=== PATIENT | male | born 1945 | race Caucasian/White ===

== ENCOUNTER → 2018-04-30 | Outpatient (REF) ==
[~2018-04-30] MED LIST: ALPR1TAB3 PO; AMLO5TAB6 PO; AMOX500C PO; ASPI1TAB PO; ASPI325T PO; ATEN50TA2 PO; ATOR80TA59 PO; ATRO0.063 IN; BENZ200C70 PO; CALC25TA PO; CHIL81CH2 PO; CIPR-249 PO; DEBR6.5S4 OTIC; FLOM0.4C39 PO; FLON1SPR; IPRA0.00 INH; LEVE750T5 PO; LOVE0.6I2 SC; LOVE1INJ SC; MAGN400T2 PO; METO1TAB32 PO; METO25TA4 PO; MIRA3350 PO; OXYB10TA PO; PARO20TA3 PO; PEG1POW PO; PHILCAP3 PO; PLAV1TAB2 PO; PRED20TA PO; PROTPAK PO; RANI1SYP PO; ROPI0.5T PO; ROPI3TAB3 PO; SENO8.6T5 PO; SLEE1TAB PO; SPIR1CAP INH; TYLE325T5 PO; VIST25CA PO; VITA1CAP2 PO; VITA1CHW8 PO; VITA500S3 PO; VITA500T3 PO; VITATAB11 PO; WARF-23 PO; [UNRECOGNIZED DRUG - OTHER]
--- NOTE | 2018-04-30 16:46 | REP ---
Chest two views HISTORY: Preop Comparison: 10/02/2015 The lungs are clear. The heart is normal in size. The pulmonary vasculature is normal in appearance. The bony structure is intact. IMPRESSION: No acute disease. Electronically Signed by Jerry Overton MD 04/30/2018 04:38 P
[2018-04-30 17:00] LABS: HEMATOCRIT 46.7 % (42.0-52.0); HEMOGLOBIN 15.5 g/dl (13.5-17.5); MEAN CORPUSCULAR HEMOGLOBIN 32.2 pg (27.0-33.0); MEAN CORPUSCULAR HGB CONC 33.2 g/dl (32.0-36.5); MEAN CORPUSCULAR VOLUME 97.1 fl (80.0-96.0); PLATELET COUNT, AUTOMATED 193 10^3/uL (150-450); RED BLOOD COUNT 4.81 10^6/uL (4.30-6.10); WHITE BLOOD COUNT 8.1 10^3/uL (4.0-10.0)
[2018-04-30 17:10] LABS: APPEARANCE, URINE CLEAR (CLEAR); BACTERIA, URINE AUTO 1+ (NEGATIVE); BILIRUBIN, URINE AUTO NEGATIVE (NEGATIVE); BLOOD, URINE BLOOD NEGATIVE (NEGATIVE); COLOR, URINE YELLOW (YELLOW); GLUCOSE, URINE (UA) AUTO NEGATIVE (NEGATIVE); KETONE, URINE AUTO NEGATIVE (NEGATIVE); LEUKOCYTE ESTERASE, URINE AUTO NEGATIVE (NEGATIVE); MUCUS, URINE SMALL (NEGATIVE); NITRITE, URINE AUTO NEGATIVE (NEGATIVE); PROTEIN, URINE AUTO NEGATIVE (NEGATIVE); RBC, URINE AUTO 3 /HPF (0-3); SPECIFIC GRAVITY URINE AUTO 1.018 (1.002-1.035); SQUAMOUS EPITHELIAL CELL UR AU 1 /HPF (0-6); WBC, URINE AUTO 1 /HPF (0-3)
[2018-04-30 17:16] LABS: INR 1.54; PROTHROMBIN TIME 18.8 SECONDS (12.1-14.4)
[2018-04-30 17:17] LABS: PARTIAL THROMBOPLASTIN TIME 30.6 SECONDS (25.4-37.6)
[2018-04-30 17:21] LABS: BLOOD UREA NITROGEN 18 MG/DL (7-18); CALCIUM LEVEL 8.7 MG/DL (8.8-10.2); CARBON DIOXIDE LEVEL 28 MEQ/L (21-32); CHLORIDE LEVEL 104 MEQ/L (98-107); CREATININE FOR GFR 1.04 MG/DL (0.70-1.30); GLOMERULAR FILTRATION RATE > 60.0 (>42); GLUCOSE, FASTING 97 MG/DL (70-100); POTASSIUM SERUM 4.3 MEQ/L (3.5-5.1); SODIUM LEVEL 140 MEQ/L (136-145)
== END ==
LOC: M LAB 15:33
PROVIDERS: ATTEND Urology
DX: D49.4 Neoplasm of unspecified behavior of bladder (principal)

== ENCOUNTER → 2018-04-30 | Outpatient (CLI) | payer MEDICARE, OTHER | LOC: M LAB 15:33 | PROVIDERS: ATTEND Urology | DX: D49.4 Neoplasm of unspecified behavior of bladder (principal); Z79.01 Long term (current) use of anticoagulants; Z79.899 Other long term (current) drug therapy ==

== ENCOUNTER → 2018-05-04 | Outpatient (REF) | payer OTHER ==
[~2018-05-04] MED LIST changes: -AMOX500C PO; -DEBR6.5S4 OTIC; -METO25TA4 PO; -PRED20TA PO; -ROPI3TAB3 PO
== END ==
LOC: M LABSMT 08:14
PROVIDERS: ATTEND Urology
DX: Z01.818 Encounter for other preprocedural examination (principal); D49.4 Neoplasm of unspecified behavior of bladder; N39.0 Urinary tract infection, site not specified

== ENCOUNTER → 2018-05-07 | Outpatient (REF) | payer OTHER ==
[2018-05-07 19:23] LABS: APPEARANCE, URINE CLEAR (CLEAR); BACTERIA, URINE AUTO NEGATIVE (NEGATIVE); BILIRUBIN, URINE AUTO NEGATIVE (NEGATIVE); BLOOD, URINE BLOOD NEGATIVE (NEGATIVE); COLOR, URINE YELLOW (YELLOW); GLUCOSE, URINE (UA) AUTO NEGATIVE (NEGATIVE); KETONE, URINE AUTO NEGATIVE (NEGATIVE); LEUKOCYTE ESTERASE, URINE AUTO NEGATIVE (NEGATIVE); MUCUS, URINE SMALL (NEGATIVE); NITRITE, URINE AUTO NEGATIVE (NEGATIVE); PROTEIN, URINE AUTO NEGATIVE (NEGATIVE); RBC, URINE AUTO 3 /HPF (0-3); SPECIFIC GRAVITY URINE AUTO 1.021 (1.002-1.035); SQUAMOUS EPITHELIAL CELL UR AU 0 /HPF (0-6); WBC, URINE AUTO 1 /HPF (0-3)
== END ==
LOC: M SMT 17:14
PROVIDERS: ATTEND Urology
DX: Z01.818 Encounter for other preprocedural examination (principal); D49.4 Neoplasm of unspecified behavior of bladder; N39.0 Urinary tract infection, site not specified

== ENCOUNTER → 2018-05-10 | Day surgery (SDC) | payer MEDICARE, OTHER ==
[~2018-05-10] VITALS: Ht 162.6 cm; Wt 92.3 kg
[~2018-05-10] MED LIST changes: +ACETAMINOPHEN TAB 650MG DOSE (2X325MG) PO PRN; +LIDOCAINE 2% INJ 100 MG/5 ML SDV (FOR ANES.) As Ordered ONE; +LR 1,000 ML IV SCH; +MEPERIDINE INJ 25 MG/ML VIAL (J2175) IV PRN; +METOCLOPRAMIDE INJ 10MG/2ML VIAL (J2765) IV PRN; +MIDAZOLAM INJ 2 MG/2 ML VIAL (J2250) As Ordered ONE; +ONDANSETRON 4MG/2ML VIAL (J2405) As Ordered ONE; +ONDANSETRON 4MG/2ML VIAL (J2405) IV PRN; +PERCOCET 5MG/325MG TAB PO PRN; +PROPOFOL 200 MG/20 ML VIAL As Ordered ONE; +ROCURONIUM BROMIDE 50 MG/5 ML VIAL As Ordered ONE; +dexameTHASONE 4 MG/ML 1ML VIAL (J1100) As Ordered ONE; +fentaNYL 100 MCG/2 ML INJECTION (J3010) As Ordered ONE; +fentaNYL 100 MCG/2 ML INJECTION (J3010) IV PRN
[2018-05-10 13:23] LABS: PROTHROMBIN TIME 13.3 SECONDS (12.1-14.4)
[2018-05-10 17:42] VITALS: BP 172/89
--- NOTE | 2018-05-11 11:08 | RO ---
DATE OF PROCEDURE: 05/10/2018 PREPROCEDURE DIAGNOSIS: Bladder tumor. POSTPROCEDURE DIAGNOSIS: Bladder tumor, bladder neck contracture. PROCEDURE: Cystoscopy, transurethral resection of bladder tumor (between 2cm and 5cm), transurethral incision of bladder neck. SURGEON: Dr. Alfredito Moses FUNDRAISING DIRECTOR: None. ANESTHESIA: General. OPERATIVE INDICATIONS: This is a 72-year-old male who recently in the office was found to have a small bladder tumor near the left ureteral orifice. He was brought to the operating room for treatment. DESCRIPTION OF PROCEDURE: Patient was brought to the operating room where general anesthesia was induced. Prophylactic antibiotics were infused. He was then placed in the dorsal lithotomy position and prepped and draped in the usual sterile fashion. At this point a resectoscope was inserted into the urethral meatus and advanced towards the bladder using a visual obturator. At the level of the bladder neck he had a very narrow contracture. I could not advance the scope half contracture. I therefore used the Resendez knife to incise the contracture at both 5 and 7 o'clock until the bladder neck was wide open. Once that was done I was able to get the scope into the bladder. The bladder was thoroughly examined and of note he had a small tumor just above the level of the ureteral orifice on the left side. He also of note had a larger tumor which approximately was only 2 to 3 cm in size a the bladder dome. Both of these tumors were resected using a loop. I then catheterized the area of resection using the coagulation current. I then removed the tumors from the bladder to be sent for pathologic analysis. Once I was satisfied with hemostasis, the resectoscope was removed and an 18-Armenian Yousif catheter was inserted into the bladder. The balloon was filled with 2 mL of sterile water. The catheter drained light pink at the end of the procedure. Catheter has been checked for adequate drainage, this marked the conclusion of the procedure. The patient was then taken out dorsal lithotomy position, awakened from anesthesia and transferred from the recovery room in stable condition. ESTIMATED BLOOD LOSS: 5 mL. COMPLICATIONS: None. SPECIMENS: Bladder tumor. PLAN: The patient will followup in the clinic next week for catheter removal and discuss the pathology results. CHRIS
== END | disposition home or self-care (01) ==
LOC: M SDC 12:36
PROVIDERS: ATTEND Urology
DX: C67.9 Malignant neoplasm of bladder, unspecified (principal); N32.0 Bladder-neck obstruction; I10 Essential (primary) hypertension; E78.5 Hyperlipidemia, unspecified; M12.9 Arthropathy, unspecified; F41.9 Anxiety disorder, unspecified; G43.909 Migraine, unspecified, not intractable, without status migrainosus; R56.9 Unspecified convulsions; J44.9 Chronic obstructive pulmonary disease, unspecified; G47.33 Obstructive sleep apnea (adult) (pediatric); Z88.8 Allergy status to other drugs, medicaments and biological substances; Z79.899 Other long term (current) drug therapy; Z79.82 Long term (current) use of aspirin; Z79.01 Long term (current) use of anticoagulants; Z86.73 Personal history of transient ischemic attack (TIA), and cerebral infarction without residual deficits; Z85.46 Personal history of malignant neoplasm of prostate; Z96.651 Presence of right artificial knee joint
CPT/HCPCS: 36415; 52234; 52276; 85610; 88307; J0690; J1100; J2250; J2405; J3010

== ENCOUNTER 2018-06-29 15:47 | Emergency (ER) | payer OTHER, MEDICARE ==
[~2018-06-29] VITALS: Ht 162.6 cm; Wt 93.0 kg
[~2018-06-29 15:47] MED LIST changes: -ACETAMINOPHEN TAB 650MG DOSE (2X325MG) PO PRN; -LIDOCAINE 2% INJ 100 MG/5 ML SDV (FOR ANES.) As Ordered ONE; -LR 1,000 ML IV SCH; -MEPERIDINE INJ 25 MG/ML VIAL (J2175) IV PRN; -METOCLOPRAMIDE INJ 10MG/2ML VIAL (J2765) IV PRN; -MIDAZOLAM INJ 2 MG/2 ML VIAL (J2250) As Ordered ONE; -ONDANSETRON 4MG/2ML VIAL (J2405) As Ordered ONE; -ONDANSETRON 4MG/2ML VIAL (J2405) IV PRN; -PERCOCET 5MG/325MG TAB PO PRN; -PROPOFOL 200 MG/20 ML VIAL As Ordered ONE; -ROCURONIUM BROMIDE 50 MG/5 ML VIAL As Ordered ONE; -dexameTHASONE 4 MG/ML 1ML VIAL (J1100) As Ordered ONE; -fentaNYL 100 MCG/2 ML INJECTION (J3010) As Ordered ONE; -fentaNYL 100 MCG/2 ML INJECTION (J3010) IV PRN
[2018-06-29] MEDS ORDERED: DEBR6.5S4 OTIC (16:26)
[2018-06-29] MEDS ORDERED: ROPI3TAB3 PO (16:26)
[2018-06-29] MEDS ORDERED: METO25TA4 PO (16:26)
[2018-06-29] MEDS ORDERED: IPRATROPIUM 0.5MG/ALBUTEROL 2.5MG INH SOL UD 3ML (DUONEB)(J7620) NEB PRN (16:45)
[2018-06-29 17:12] LABS: BASO % 0.4 % (0.0-1.0); EOS # 0.1 10^3/uL (0.0-0.50); EOS % 0.5 % (0.0-3.0); HEMOGLOBIN 14.7 g/dl (13.5-17.5); LYMPH # 1.7 10^3/uL (1.5-4.5); MEAN CORPUSCULAR HEMOGLOBIN 32.3 pg (27.0-33.0); MEAN CORPUSCULAR HGB CONC 33.4 g/dl (32.0-36.5); MEAN CORPUSCULAR VOLUME 96.7 fl (80.0-96.0); MONO % 10.3 % (0.0-5.0); NEUTROPHILS # 7.3 10^3/uL (1.8-7.7); NEUTROPHILS % 71.5 % (36.0-66.0); PLATELET COUNT, AUTOMATED 179 10^3/uL (150-450); RED BLOOD COUNT 4.55 10^6/uL (4.30-6.10); WHITE BLOOD COUNT 10.1 10^3/uL (4.0-10.0)
[2018-06-29] MEDS ORDERED: methylPREDNISolone INJ 125 MG/2 ML VIAL (J2930) IV ONE (17:30)
[2018-06-29 17:42] LABS: BLOOD UREA NITROGEN 14 MG/DL (7-18); CALCIUM LEVEL 8.3 MG/DL (8.8-10.2); CARBON DIOXIDE LEVEL 29 MEQ/L (21-32); CHLORIDE LEVEL 105 MEQ/L (98-107); CPK CREATINE PHOSPHOKINASE 147 U/L (39-308); CREATININE FOR GFR 1.06 MG/DL (0.70-1.30); GLOMERULAR FILTRATION RATE > 60.0 (>42); GLUCOSE, FASTING 109 MG/DL (70-100); MB/CK RELATIVE INDEX 1.16 (< OR =4); POTASSIUM SERUM 3.6 MEQ/L (3.5-5.1); SODIUM LEVEL 141 MEQ/L (136-145)
[2018-06-29 17:48] LABS: INFLUENZA A AMPLIFICATION NEGATIVE (NEGATIVE); INFLUENZA B AMPLIFICATION NEGATIVE (NEGATIVE)
--- NOTE | 2018-06-29 18:14 | REP ---
Chest x-ray: Two views. History: Dyspnea and cough. Comparison chest x-ray: April 30, 2018. Findings: EKG monitoring electrodes overlie the chest. The lungs are well inflated and clear. Pleural angles are sharp. Heart size is normal. The aorta is calcific. No significant bony abnormality. Impression: No active disease. Electronically Signed by Stanislaw Murillo MD 06/29/2018 06:05 P
[2018-06-29] MEDS ORDERED: LEVALBUTEROL 1.25 MG/0.5 ML CONCENTRATE NEB NEB ONE (18:15)
--- NOTE | 2018-06-29 18:59 | ECGEPIP ---
Stationary ECG Study [facility] - ED Test Date: 2018-06-29 Pat Name: MAREK RIZO Department: Room: - Gender: M Ent Surgeon: Kacie : 1945 Requested By: KAT GUERIN Order Number: [id number] Reading MD: Kartik Flowers Measurements Intervals [place] Rate: 94 P: 7 [place]: 163 QRS: -4 QRSD: 105 T: -5 QT: 360 QTc: 451 Interpretive Statements SINUS RHYTHM INCOMPLETE RIGHT BUNDLE BRANCH BLOCK NSTTW ABNORMALITIES SIMILAR TO 12/01/14 Electronically Signed On 06-29-2018 18:58:36 EST by Kartik Flowers
[2018-06-29] MEDS ORDERED: IPRATROPIUM 0.5MG/ALBUTEROL 2.5MG INH SOL UD 3ML (DUONEB)(J7620) NEB ONE (19:15)
[2018-06-29] MEDS ORDERED: AMOX500C PO (20:27)
[2018-06-29] MEDS ORDERED: PRED20TA PO (20:27)
[2018-06-29] MEDS ORDERED: AMOXICILLIN 500 MG CAP PO ONE (20:30)
[2018-06-29 20:38] VITALS: BP 133/72
== END 2018-06-29 20:43 | disposition home or self-care (01) ==
LOC: M ED 15:47
DX: J44.1 Chronic obstructive pulmonary disease with (acute) exacerbation (principal); I45.19 Other right bundle-branch block; I10 Essential (primary) hypertension; E78.5 Hyperlipidemia, unspecified; Z86.73 Personal history of transient ischemic attack (TIA), and cerebral infarction without residual deficits; Z85.46 Personal history of malignant neoplasm of prostate; Z85.51 Personal history of malignant neoplasm of bladder; Z87.891 Personal history of nicotine dependence; Z79.82 Long term (current) use of aspirin; Z79.899 Other long term (current) drug therapy; Z79.01 Long term (current) use of anticoagulants; Z88.8 Allergy status to other drugs, medicaments and biological substances
CPT/HCPCS: 71046; 80048; 82550; 82553; 85025; 87040; 87502; 93005; 93041; 94640; 94760; 96374; 99285; J2930

== ENCOUNTER → 2018-08-06 | Outpatient (REF) | payer OTHER ==
[~2018-08-06] MED LIST changes: +AMOX500C PO; +ASPI-1 PO; +ASPI-286 PO; -ASPI1TAB PO; -ASPI325T PO; +ASPI81TA26 PO; -CHIL81CH2 PO; +DEBR6.5S4 OTIC; +METO25TA4 PO; +PRED20TA PO; +ROPI3TAB3 PO; +VITA-183 PO; -VITA1CAP2 PO
== END ==
LOC: M SMT 13:01
PROVIDERS: ATTEND Urology
DX: C67.9 Malignant neoplasm of bladder, unspecified (principal)

== ENCOUNTER → 2018-11-16 | Outpatient (REF) | payer OTHER ==
[~2018-11-16] MED LIST changes: +CYAN500T8 PO; -OXYB10TA PO; +OXYB10TA2 PO; -VITA500T3 PO
== END ==
LOC: M SMT 17:06
PROVIDERS: ATTEND Urology
DX: C67.9 Malignant neoplasm of bladder, unspecified (principal)

== ENCOUNTER → 2019-02-18 | Outpatient (REF) | payer OTHER | LOC: M SMT 12:59 | PROVIDERS: ATTEND Urology | DX: C67.9 Malignant neoplasm of bladder, unspecified (principal); R82.90 Unspecified abnormal findings in urine ==

== ENCOUNTER → 2019-03-25 | Outpatient (CLI) | payer OTHER ==
[~2019-03-25] MED LIST changes: +ISOVUE-370 76% 100ML VIAL (Q9967) As Ordered ONE
--- NOTE | 2019-03-25 10:54 | REP ---
Clinical: Given history of bladder cancer. Technique: Axial precontrast, contrast enhanced, and delayed images of the abdomen and pelvis using 100 ml Isovue 370 intravenous contrast material. Comparison: None. Findings: There is evidence for right-sided cross fused ectopia to the kidneys without evidence for hydroureteronephrosis or significant renal mass lesion. Evaluation of the bladder in all phases of enhancement is grossly unremarkable and without wall thickening or obvious mass lesion. No perivesicular stranding or pelvic adenopathy noted. Further evaluation of the pelvis demonstrates prior prostatectomy and pelvic node dissection. Liver, spleen, pancreas, gallbladder, and bilateral adrenal glands are normal. The enteric system is without obstruction or acute inflammatory process. Normal terminal ileum and appendix identified in the right lower quadrant. Scattered colonic diverticula noted. Fat containing inguinal hernias (right greater than left). No ascites. No adenopathy. Atherosclerotic changes of the aorta and vasculature without aneurysm or dissection. Musculoskeletal structures intact. Lung bases are relatively clear. Impression: 1. 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 No obvious further urinary tract abnormality identified. 2. Chronic and postsurgical changes as noted above. 3. No evidence for acute malignancy or metastatic disease. Electronically Signed by Nate Villalta MD 03/25/2019 10:45 A
== END ==
LOC: M RAD 09:33
PROVIDERS: ATTEND Urology
DX: K40.90 Unilateral inguinal hernia, without obstruction or gangrene, not specified as recurrent (principal); Q63.1 Lobulated, fused and horseshoe kidney; C67.9 Malignant neoplasm of bladder, unspecified
CPT/HCPCS: 74178; Q9967

== ENCOUNTER → 2019-07-09 | Outpatient (REF) | payer OTHER ==
[~2019-07-09] MED LIST changes: -ISOVUE-370 76% 100ML VIAL (Q9967) As Ordered ONE; -OXYB10TA2 PO; +OXYB10TA23 PO; -ROPI0.5T PO; +ROPI0.5T3 PO
== END ==
LOC: M SMT 16:54
PROVIDERS: ATTEND Urology
DX: C67.9 Malignant neoplasm of bladder, unspecified (principal)

== ENCOUNTER → 2020-01-17 | Outpatient (REF) | payer OTHER ==
[~2020-01-17] MED LIST changes: +AMLO1TAB24 PO; -AMLO5TAB6 PO
== END ==
LOC: M SMT 17:06
PROVIDERS: ATTEND Urology
DX: C67.9 Malignant neoplasm of bladder, unspecified (principal)

== ENCOUNTER → 2021-04-05 | Outpatient (CLI) | payer OTHER ==
[~2021-04-05] MED LIST changes: +CYAN500T14 PO; -CYAN500T8 PO; -PEG1POW PO; +POLY17PO18 PO
--- NOTE | 2021-04-05 12:09 | REP ---
INDICATION: SMOKER COMPARISON: None. TECHNIQUE: Axial noncontrast images from the thoracic inlet to the upper abdomen using low-dose lung screening technique (LDCT). FINDINGS: Chronic age-related interstitial and emphysematous changes are noted. There is a 6 mm noncalcified nodule in the anterior right lower lobe (series 201; image 57). No acute consolidation. No effusion. No pneumothorax. Tracheobronchial tree is patent. Limited evaluation of the mediastinum demonstrates atherosclerotic changes to the thoracic aorta and coronary arteries. IMPRESSION: Lung-RADS category 3. Management recommendations include 6 month follow-up examination. <Electronically signed by Nate Villalta > 04/05/21 [id number]
== END ==
LOC: M RAD 10:27
PROVIDERS: ATTEND Internal Medicine Pulmonary Disease
DX: Z12.2 Encounter for screening for malignant neoplasm of respiratory organs (principal); Z87.891 Personal history of nicotine dependence

== ENCOUNTER → 2021-09-17 | Outpatient (REF) | payer OTHER ==
[~2021-09-17] MED LIST changes: -ASPI-286 PO; +ASPI325T57 PO; +BRIL90TA PO; +EZET10TA21 PO; +FURO20TA2 PO; +SM C81CH2 PO; +TRAZ-257 PO
== END ==
LOC: M SMT 17:09
PROVIDERS: ATTEND Urology
DX: C67.9 Malignant neoplasm of bladder, unspecified (principal)

== ENCOUNTER → 2021-09-30 | Outpatient (CLI) | payer OTHER ==
[~2021-09-30] MED LIST changes: -ASPI325T57 PO; -BRIL90TA PO; -EZET10TA21 PO; -FURO20TA2 PO; -TRAZ-257 PO
[2021-09-30 14:41] LABS: HEMATOCRIT 41.4 % (42.0-52.0); HEMOGLOBIN 13.8 g/dl (13.5-17.5); MEAN CORPUSCULAR HEMOGLOBIN 33.3 pg (27.0-33.0); MEAN CORPUSCULAR HGB CONC 33.3 g/dl (32.0-36.5); PLATELET COUNT, AUTOMATED 188 10^3/uL (150-450); RED BLOOD COUNT 4.14 10^6/uL (4.30-6.10); WHITE BLOOD COUNT 7.2 10^3/uL (4.0-10.0)
[2021-09-30 14:55] LABS: INR 0.98; PROTHROMBIN TIME 13.4 SECONDS (12.7-14.5)
[2021-09-30 14:56] LABS: PARTIAL THROMBOPLASTIN TIME 24.9 SECONDS (25.9-37.0)
[2021-09-30 15:07] LABS: BLOOD UREA NITROGEN 15 MG/DL (7-18); CALCIUM LEVEL 9.2 MG/DL (8.8-10.2); CARBON DIOXIDE LEVEL 27 MEQ/L (21-32); CHLORIDE LEVEL 108 MEQ/L (98-107); CREATININE FOR GFR 1.13 MG/DL (0.70-1.30); GLOMERULAR FILTRATION RATE > 60.0 (>42); GLUCOSE, FASTING 147 MG/DL (70-100); POTASSIUM SERUM 3.9 MEQ/L (3.5-5.1); SODIUM LEVEL 143 MEQ/L (136-145)
== END ==
LOC: M LAB 13:59
PROVIDERS: ATTEND Urology
DX: C67.9 Malignant neoplasm of bladder, unspecified (principal); Z01.818 Encounter for other preprocedural examination; N39.0 Urinary tract infection, site not specified

== ENCOUNTER → 2021-10-01 | Outpatient (REF) | payer OTHER | LOC: M SMT 11:42 | PROVIDERS: ATTEND Urology | DX: Z01.818 Encounter for other preprocedural examination (principal); C67.9 Malignant neoplasm of bladder, unspecified; N39.0 Urinary tract infection, site not specified ==

== ENCOUNTER → 2021-10-06 | Outpatient (CLI) | payer OTHER ==
[~2021-10-06] MED LIST changes: +ASPI325T57 PO; +BRIL90TA PO; +EZET10TA21 PO; +FURO20TA2 PO; +TRAZ-257 PO
== END ==
LOC: M LABSMTC 10:20
PROVIDERS: ATTEND Anesthesiology
DX: Z11.52 Encounter for screening for COVID-19 (principal); Z20.828 Contact with and (suspected) exposure to other viral communicable diseases

== ENCOUNTER 2021-10-11 06:05 | Day surgery (SDC) | payer OTHER ==
[~2021-10-11] VITALS: Ht 167.6 cm; Wt 84.4 kg
[2021-10-11] MEDS ORDERED: LR 1,000 ML IV SCH (06:50)
[2021-10-11] MEDS ORDERED: ONDANSETRON 4MG/2ML VIAL As Ordered ONE (07:06)
[2021-10-11] MEDS ORDERED: LIDOCAINE 2% 100MG/5ML SDV (FOR ANES.) As Ordered ONE (07:06)
[2021-10-11] MEDS ORDERED: ETOMIDATE INJ 20MG/10ML VIAL As Ordered ONE ×2 (07:06→08:37)
[2021-10-11] MEDS ORDERED: fentaNYL 100 MCG/2 ML INJECTION As Ordered ONE (07:07)
[2021-10-11] MEDS ORDERED: ceFAZolin SOD 2 GM in IV 1 EA IV ONE (07:10)
[2021-10-11] MEDS ORDERED: ROCURONIUM BROMIDE 50 MG/5 ML VIAL As Ordered ONE (07:26)
[2021-10-11] MEDS ORDERED: mitoMYcin 40MG VIAL *UROLOGY* (J9280 PER 5MG) INTRAVESIC ONE (07:30)
[2021-10-11] MEDS ORDERED: SUGAMMADEX SODIUM 500 MG/5 ML VIAL (BRIDION) As Ordered ONE (08:24)
[2021-10-11] MEDS ORDERED: LABETALOL 100MG/20ML VIAL As Ordered ONE (08:30)
[2021-10-11] MEDS ORDERED: MEPERIDINE INJ 25 MG/ML VIAL (J2175) IV PRN (09:00)
[2021-10-11] MEDS ORDERED: fentaNYL 100 MCG/2 ML INJECTION IV PRN (09:00)
[2021-10-11] MEDS ORDERED: ONDANSETRON 4MG/2ML VIAL IV PRN (09:00)
[2021-10-11] MEDS ORDERED: oxyCODONE 5MG TAB PO PRN (09:00)
[2021-10-11] MEDS ORDERED: NS 1,000 ML IV SCH (09:00)
[2021-10-11] MEDS ORDERED: ACETAMINOPHEN TAB 650MG DOSE (2X325MG) PO PRN (09:10)
[2021-10-11 11:15] VITALS: BP 135/70
== END 2021-10-11 11:36 | disposition home or self-care (01) ==
LOC: M SDC 06:05
PROVIDERS: ATTEND Urology
DX: C67.9 Malignant neoplasm of bladder, unspecified (principal); I25.10 Atherosclerotic heart disease of native coronary artery without angina pectoris; I10 Essential (primary) hypertension; E78.5 Hyperlipidemia, unspecified; J44.9 Chronic obstructive pulmonary disease, unspecified; Z86.73 Personal history of transient ischemic attack (TIA), and cerebral infarction without residual deficits; F41.9 Anxiety disorder, unspecified; G43.909 Migraine, unspecified, not intractable, without status migrainosus; Z88.8 Allergy status to other drugs, medicaments and biological substances; G47.33 Obstructive sleep apnea (adult) (pediatric); Z85.46 Personal history of malignant neoplasm of prostate; Z79.02 Long term (current) use of antithrombotics/antiplatelets; Z79.899 Other long term (current) drug therapy
CPT/HCPCS: 51720; 52234; 88305; J0690; J2405; J3010; J9280

== ENCOUNTER 2021-10-17 11:28 | Observation (INO) | payer OTHER ==
[~2021-10-17] VITALS: Ht 167.6 cm; Wt 81.2 kg
[2021-10-17 12:29] LABS: BASO % 0.7 % (0.0-1.0); EOS # 0.1 10^3/uL (0.0-0.5); EOS % 1.3 % (0.0-3.0); HEMATOCRIT 40.6 % (42.0-52.0); HEMOGLOBIN 13.4 g/dl (13.5-17.5); LYMPH % 17.1 % (24.0-44.0); MEAN CORPUSCULAR HEMOGLOBIN 32.7 pg (27.0-33.0); MONO # 0.4 10^3/uL (0.0-0.8); MONO % 6.5 % (2.0-8.0); NEUTROPHILS # 4.4 10^3/uL (1.5-8.5); NEUTROPHILS % 74.1 % (36.0-66.0); PLATELET COUNT, AUTOMATED 205 10^3/uL (150-450)
[2021-10-17 12:41] LABS: INR 0.97; PROTHROMBIN TIME 13.3 SECONDS (12.7-14.5)
[2021-10-17 12:42] LABS: PARTIAL THROMBOPLASTIN TIME 27.9 SECONDS (25.9-37.0)
[2021-10-17 12:58] LABS: CK-MB VALUE MASS 1.3 NG/ML (<3.6); MB/CK RELATIVE INDEX 2.36 (< OR =4)
[2021-10-17 14:15] LABS: RSV AMPLIFICATION NEGATIVE (NEGATIVE)
[2021-10-17] MEDS ORDERED: ASPIRIN 81MG ENTERIC TABLET PO SCH (16:15)
[2021-10-17] MEDS ORDERED: DEXTROSE 50% 50 ML SYRINGE IV PRN (16:15)
[2021-10-17] MEDS ORDERED: GLUCOSE 4GM CHEW TABLET PO PRN (16:15)
[2021-10-17] MEDS ORDERED: GLUCAGON INJ 1MG VIAL SC PRN (16:15)
[2021-10-17] MEDS ORDERED: HEPARIN SOD (PORCINE) 5000UNITS/ML 1ML VIAL/SYRINGE IV PRN (16:40)
[2021-10-17] MEDS ORDERED: HOME MED LIST COMPLETE! XX SCH (16:40)
[2021-10-17] MEDS ORDERED: HEPARIN SOD (PORCINE) 5000UNITS/ML 1ML VIAL/SYRINGE IV ONE (16:40)
[2021-10-17] MEDS ORDERED: D5W 1,000 ML IV SCH (17:00)
[2021-10-17] MEDS ORDERED: ASPIRIN 81 MG CHEW TABLET PO ONE (17:00)
[2021-10-17 17:46] VITALS: BP 125/87
[2021-10-17] MEDS ORDERED: TAMSULOSIN 0.4 MG CAP PO SCH (18:00)
[2021-10-17 18:18] LABS: HEMATOCRIT 42.6 % (42.0-52.0); HEMOGLOBIN 14.2 g/dl (13.5-17.5); MEAN CORPUSCULAR HEMOGLOBIN 32.3 pg (27.0-33.0); MEAN CORPUSCULAR HGB CONC 33.3 g/dl (32.0-36.5); MEAN CORPUSCULAR VOLUME 96.8 fl (80.0-96.0); PLATELET COUNT, AUTOMATED 219 10^3/uL (150-450); WHITE BLOOD COUNT 7.6 10^3/uL (4.0-10.0)
[2021-10-17] MEDS ORDERED: IPRATROPIUM HFA INHALER 12.9 GRAMS (ATROVENT HFA) INH PRN (18:40)
[2021-10-17 20:00] VITALS: BP 121/67
[2021-10-17] MEDS: levETIRAcetam 250MG TABLET (KEPPRA) PO SCH (20:19)
[2021-10-17] MEDS: TICAGRELOR 90 MG TABLET (BRILINTA) PO SCH (20:21)
[2021-10-17] MEDS: METOPROLOL TART 25 MG TABLET PO SCH (20:23)
[2021-10-17] MEDS ORDERED: ATORVASTATIN 20 MG TAB PO SCH ×2 (21:00)
[2021-10-17] MEDS ORDERED: DOCUSATE SODIUM 100MG CAPSULE PO SCH (21:00)
[2021-10-17] MEDS ORDERED: TICAGRELOR 90 MG TABLET (BRILINTA) PO SCH ×2 (21:00)
[2021-10-17] MEDS ORDERED: ASPIRIN 325 MG TAB PO SCH (21:00)
[2021-10-17] MEDS ORDERED: traZODone 100 MG TAB PO SCH (21:00)
[2021-10-18] VITALS: BP 136/69
[2021-10-18 04:00] VITALS: BP 122/59
[2021-10-18 07:33] VITALS: BP 134/66
[2021-10-18] MEDS ORDERED: EZETIMIBE 10MG TABLET (ZETIA) PO SCH (09:00)
[2021-10-18] MEDS ORDERED: ENOXAPARIN 40MG/0.4ML SYRINGE (J1650 PER 10MG) SC SCH (09:00)
[2021-10-18] MEDS ORDERED: amLODIPine 5 MG TAB PO SCH (09:00)
[2021-10-18] MEDS ORDERED: ASPIRIN 81 MG CHEW TABLET PO SCH ×2 (09:00)
[2021-10-18] MEDS ORDERED: ASPIRIN 325 MG TAB PO SCH (09:00)
[2021-10-18] MEDS: levETIRAcetam 250MG TABLET (KEPPRA) PO SCH (09:02)
[2021-10-18] MEDS: METOPROLOL TART 25 MG TABLET PO SCH (09:02)
[2021-10-18 09:03] VITALS: BP 134/66
[2021-10-18] MEDS: TICAGRELOR 90 MG TABLET (BRILINTA) PO SCH (09:03)
[2021-10-18] MEDS ORDERED: ASPI81CH8 PO (09:23)
== END 2021-10-18 12:30 | disposition home health service (06) ==
LOC: M ED 11:28 → EDBD 11:28 → INTOOBSV 16:08 → M ED INP 16:08 → ENRESERV 16:19 → M PCU 17:45
PROVIDERS: ADMIT General Practice; ATTEND General Practice
DX: G45.9 Transient cerebral ischemic attack, unspecified (principal); D49.4 Neoplasm of unspecified behavior of bladder; Z98.890 Other specified postprocedural states; R29.700 NIHSS score 0; I10 Essential (primary) hypertension; E78.5 Hyperlipidemia, unspecified; J44.9 Chronic obstructive pulmonary disease, unspecified; G43.909 Migraine, unspecified, not intractable, without status migrainosus; K21.9 Gastro-esophageal reflux disease without esophagitis; Z87.440 Personal history of urinary (tract) infections; Z87.891 Personal history of nicotine dependence; Z86.73 Personal history of transient ischemic attack (TIA), and cerebral infarction without residual deficits; Z79.899 Other long term (current) drug therapy; Z79.82 Long term (current) use of aspirin; Z88.8 Allergy status to other drugs, medicaments and biological substances
CPT/HCPCS: 36415; 70450; 70544; 70551; 71045; 80047; 80180; 82550; 82553; 84484; 85025; 85027; 85610; 85730; 87631; 92610; 93005; 93041; 93306; 94760; 96372; 97116; 97161; 97165; 99285; G0378; J1650

== ENCOUNTER → 2021-12-03 | Outpatient (CLI) | payer OTHER ==
[~2021-12-03] MED LIST changes: +ASPI81CH8 PO
== END ==
LOC: M RAD 13:21
PROVIDERS: ATTEND Internal Medicine Pulmonary Disease
DX: J43.9 Emphysema, unspecified (principal); R91.8 Other nonspecific abnormal finding of lung field

== ENCOUNTER → 2022-01-17 | Outpatient (REF) | payer OTHER | LOC: M SMT 12:59 | PROVIDERS: ATTEND Urology | DX: C67.9 Malignant neoplasm of bladder, unspecified (principal) ==

== ENCOUNTER → 2022-04-26 | Outpatient (REF) | payer OTHER ==
[~2022-04-26] MED LIST changes: +CLOP75TA99 PO; -PLAV1TAB2 PO
== END ==
LOC: M SMT 16:43
PROVIDERS: ATTEND Urology
DX: C67.9 Malignant neoplasm of bladder, unspecified (principal)

== ENCOUNTER 2022-05-24 20:02 | Emergency (ER) | payer OTHER ==
[~2022-05-24] VITALS: Ht 167.6 cm; Wt 82.3 kg
[2022-05-24 20:04] VITALS: BP 141/81
== END 2022-05-25 00:46 | disposition left against medical advice (07) ==
LOC: M ED 20:02
DX: Z53.21 Procedure and treatment not carried out due to patient leaving prior to being seen by health care provider (principal)

== ENCOUNTER 2022-06-07 14:18 | Emergency (ER) | payer OTHER, MEDICARE ==
[~2022-06-07] VITALS: Ht 167.6 cm; Wt 81.8 kg
[2022-06-07 16:27] LABS: BASO % 0.4 % (0.0-1.0); EOS # 0.1 10^3/uL (0.0-0.5); EOS % 0.8 % (0.0-3.0); HEMATOCRIT 43.5 % (42.0-52.0); HEMOGLOBIN 14.3 g/dl (13.5-17.5); LYMPH # 1.4 10^3/uL (1.5-5.0); LYMPH % 19.1 % (24.0-44.0); MEAN CORPUSCULAR HEMOGLOBIN 32.6 pg (27.0-33.0); MEAN CORPUSCULAR HGB CONC 32.9 g/dl (32.0-36.5); MEAN CORPUSCULAR VOLUME 99.3 fl (80.0-96.0); MONO # 0.6 10^3/uL (0.0-0.8); MONO % 8.8 % (2.0-8.0); NEUTROPHILS % 70.6 % (36.0-66.0); PLATELET COUNT, AUTOMATED 175 10^3/uL (150-450); RED BLOOD COUNT 4.38 10^6/uL (4.30-6.10); WHITE BLOOD COUNT 7.1 10^3/uL (4.0-10.0)
[2022-06-07 16:57] LABS: ALBUMIN 3.5 G/DL (3.2-5.2); ALKALINE PHOSPHATASE 76 U/L (46-116); ALT/SGPT 20 U/L (7.0-40); AST/SGOT 16 U/L (<34); BILIRUBIN,TOTAL 0.7 MG/DL (0.3-1.2); BLOOD UREA NITROGEN 17 MG/DL (9-23); CALCIUM LEVEL 8.7 MG/DL (8.3-10.6); CARBON DIOXIDE LEVEL 30 MMOL/L (20-31); CHLORIDE LEVEL 109 MMOL/L (98-107); CREATININE FOR GFR 1.02 MG/DL (0.70-1.30); GLOMERULAR FILTRATION RATE > 60.0 (>42); GLUCOSE, FASTING 121 MG/DL (74-106); POTASSIUM SERUM 4.2 MMOL/L (3.5-5.1); SODIUM LEVEL 140 MMOL/L (136-145); TOTAL PROTEIN 6.1 G/DL (5.7-8.2)
[2022-06-07] MEDS ORDERED: SERO1TAB3 PO (19:20)
[2022-06-07 19:54] VITALS: BP 162/82
== END 2022-06-07 20:03 | disposition home or self-care (01) ==
LOC: M ED 14:18
DX: R44.1 Visual hallucinations (principal); I10 Essential (primary) hypertension; J44.9 Chronic obstructive pulmonary disease, unspecified; K21.9 Gastro-esophageal reflux disease without esophagitis; E78.5 Hyperlipidemia, unspecified; Z86.73 Personal history of transient ischemic attack (TIA), and cerebral infarction without residual deficits; Z85.46 Personal history of malignant neoplasm of prostate; Z87.891 Personal history of nicotine dependence; Z79.899 Other long term (current) drug therapy; Z88.8 Allergy status to other drugs, medicaments and biological substances

== ENCOUNTER → 2022-07-25 | Outpatient (REF) | payer OTHER ==
[~2022-07-25] MED LIST changes: +SERO1TAB3 PO
== END ==
LOC: M SMT 12:54
PROVIDERS: ATTEND Urology
DX: R82.89 Other abnormal findings on cytological and histological examination of urine (principal); C67.9 Malignant neoplasm of bladder, unspecified

== ENCOUNTER → 2022-11-28 | Outpatient (REF) | payer OTHER ==
[~2022-11-28] MED LIST changes: -ROPI0.5T3 PO; +ROPI0.5T33 PO; +ROPI3TAB18 PO; -ROPI3TAB3 PO
== END ==
LOC: M SMT 13:02
PROVIDERS: ATTEND Urology
DX: R82.89 Other abnormal findings on cytological and histological examination of urine (principal); C67.9 Malignant neoplasm of bladder, unspecified

== ENCOUNTER → 2022-12-13 | Outpatient (CLI) | payer OTHER | LOC: M RAD 14:42 | PROVIDERS: ATTEND Internal Medicine Pulmonary Disease | DX: Z87.891 Personal history of nicotine dependence (principal) ==

== ENCOUNTER 2023-05-09 03:03 | Inpatient (IN) | payer OTHER ==
[~2023-05-09] VITALS: Ht 167.6 cm; Wt 81.3 kg
[2023-05-09 04:40] LABS: RSV AMPLIFICATION NEGATIVE (NEGATIVE)
[2023-05-09] MEDS ORDERED: IPRATROPIUM 0.5MG/ALBUTEROL 2.5MG INH SOL UD 3ML (DUONEB) NEB ONE (09:45)
[2023-05-09 09:56] LABS: BASO % 0.3 % (0.0-1.0); EOS % 0.2 % (0.0-3.0); HEMATOCRIT 44.6 % (42.0-52.0); HEMOGLOBIN 15.1 g/dl (13.5-17.5); LYMPH # 0.3 10^3/uL (1.5-5.0); LYMPH % 4.6 % (24.0-44.0); MEAN CORPUSCULAR HGB CONC 33.9 g/dl (32.0-36.5); MEAN CORPUSCULAR VOLUME 97.4 fl (80.0-96.0); MONO # 0.7 10^3/uL (0.0-0.8); MONO % 11.9 % (2.0-8.0); NEUTROPHILS # 5.1 10^3/uL (1.5-8.5); NEUTROPHILS % 82.5 % (36.0-66.0); PLATELET COUNT, AUTOMATED 146 10^3/uL (150-450); RED BLOOD COUNT 4.58 10^6/uL (4.30-6.10); WHITE BLOOD COUNT 6.1 10^3/uL (4.0-10.0)
[2023-05-09 10:08] LABS: INR 1.16; PROTHROMBIN TIME 14.5 SECONDS (12.5-14.5)
[2023-05-09 10:20] LABS: CK-MB VALUE MASS < 1.0 NG/ML (<3.6)
[2023-05-09 10:22] LABS: ALBUMIN 3.5 G/DL (3.2-5.2); ALKALINE PHOSPHATASE 63 U/L (46-116); ALT/SGPT 21 U/L (7.0-40); AST/SGOT 21 U/L (<34); BILIRUBIN,DIRECT 0.3 MG/DL (<0.4); BILIRUBIN,TOTAL 0.8 MG/DL (0.3-1.2); BLOOD UREA NITROGEN 18 MG/DL (9-23); CALCIUM LEVEL 8.4 MG/DL (8.3-10.6); CARBON DIOXIDE LEVEL 26 MMOL/L (20-31); CHLORIDE LEVEL 107 MMOL/L (98-107); CPK CREATINE PHOSPHOKINASE 79 U/L (46-171); CREATININE FOR GFR 1.08 MG/DL (0.70-1.30); GLOMERULAR FILTRATION RATE > 60.0 (>42); GLUCOSE, FASTING 156 MG/DL (74-106); MB/CK RELATIVE INDEX 1.26 (< OR =4); POTASSIUM SERUM 4.2 MMOL/L (3.5-5.1); SODIUM LEVEL 139 MMOL/L (136-145); TOTAL PROTEIN 6.1 G/DL (5.7-8.2)
[2023-05-09] MEDS ORDERED: QUET1TAB17 PO (10:24)
[2023-05-09] MEDS ORDERED: ASPI81TA26 PO (10:24)
[2023-05-09] MEDS ORDERED: IPRA0.00 INH (10:24)
[2023-05-09] MEDS ORDERED: DOCU100C16 PO (10:24)
[2023-05-09] MEDS ORDERED: ALBU8.5H INH (10:24)
[2023-05-09] MEDS ORDERED: DONE10TA90 PO (10:24)
[2023-05-09] MEDS ORDERED: HOME MED LIST COMPLETE! XX SCH (10:25)
[2023-05-09] MEDS ORDERED: ISOVUE-370 76% 100ML VIAL As Ordered ONE (11:27)
[2023-05-09 11:29] VITALS: O2SAT 91
[2023-05-09] MEDS ORDERED: OSELTAMIVIR PHOSPHATE 75 MG CAP (TAMIFLU) PO ONE (11:35)
[2023-05-09] MEDS ORDERED: methylPREDNISolone 125MG 2ML VIAL IV ONE (11:35)
[2023-05-09] MEDS: NS 1,000 ML IV SCH ×2 (12:04→19:00)
[2023-05-09] MEDS ORDERED: ONDANSETRON 4MG 2ML VIAL IV PRN (12:40)
[2023-05-09] MEDS ORDERED: ALBUTEROL 90 MCG/ACT 8GM HFA INHALER INH PRN (12:50)
[2023-05-09] MEDS ORDERED: ENOXAPARIN 40MG/0.4ML SYRINGE (J1650 PER 10MG) SC ONE (14:00)
[2023-05-09] MEDS: levETIRAcetam 250MG TABLET (KEPPRA) PO SCH ×2 (14:01→21:39)
[2023-05-09] MEDS: amLODIPine 5 MG TAB PO SCH (14:01)
[2023-05-09] MEDS: METOPROLOL TART 25 MG TABLET PO SCH ×2 (14:01→21:39)
[2023-05-09] MEDS: TAMSULOSIN 0.4 MG CAP PO SCH (14:01)
[2023-05-09] MEDS: ASPIRIN 81MG ENTERIC TABLET PO SCH (14:02)
[2023-05-09] MEDS: IPRATROPIUM 0.5MG/ALBUTEROL 2.5MG INH SOL UD 3ML (DUONEB) INH SCH ×2 (14:11→20:00)
[2023-05-09] MEDS: DONEPEZIL 5 MG TAB PO SCH (15:30)
[2023-05-09] MEDS: TICAGRELOR 90 MG TABLET (BRILINTA) PO SCH (21:00)
[2023-05-09] MEDS: OSELTAMIVIR PHOSPHATE 30MG CAPSULE PO SCH (21:38)
[2023-05-09] MEDS: DOCUSATE SODIUM 100MG CAPSULE PO SCH (21:38)
[2023-05-09] MEDS: QUEtiapine FUMARATE 25 MG TAB PO SCH (21:39)
[2023-05-09 22:05] VITALS: BP 132/76; TEMP 98.5; O2SAT 93
[2023-05-09] MEDS: traZODone 100 MG TAB PO SCH (22:57)
[2023-05-10] MEDS: IPRATROPIUM 0.5MG/ALBUTEROL 2.5MG INH SOL UD 3ML (DUONEB) INH SCH ×4 (02:00→20:22)
[2023-05-10] MEDS: NS 1,000 ML IV SCH ×2 (02:14→09:14)
[2023-05-10] MEDS: diphenhydrAMINE 50MG CAP PO PRN (02:39)
[2023-05-10 06:00] VITALS: BP 125/73; TEMP 97.9; O2SAT 90
[2023-05-10 08:40] LABS: HEMATOCRIT 38.4 % (42.0-52.0); MEAN CORPUSCULAR HEMOGLOBIN 32.7 pg (27.0-33.0); MEAN CORPUSCULAR HGB CONC 33.6 g/dl (32.0-36.5); MEAN CORPUSCULAR VOLUME 97.5 fl (80.0-96.0); PLATELET COUNT, AUTOMATED 140 10^3/uL (150-450); RED BLOOD COUNT 3.94 10^6/uL (4.30-6.10); WHITE BLOOD COUNT 6.3 10^3/uL (4.0-10.0)
[2023-05-10 09:01] LABS: HEMOGLOBIN 12.9 g/dl (13.5-17.5)
[2023-05-10] MEDS: amLODIPine 5 MG TAB PO SCH (09:03)
[2023-05-10] MEDS: OSELTAMIVIR PHOSPHATE 30MG CAPSULE PO SCH ×2 (09:03→20:39)
[2023-05-10] MEDS: TICAGRELOR 90 MG TABLET (BRILINTA) PO SCH ×2 (09:03→20:40)
[2023-05-10] MEDS: METOPROLOL TART 25 MG TABLET PO SCH ×2 (09:03→20:44)
[2023-05-10] MEDS: ASPIRIN 81MG ENTERIC TABLET PO SCH (09:03)
[2023-05-10] MEDS: TAMSULOSIN 0.4 MG CAP PO SCH (09:03)
[2023-05-10] MEDS: DONEPEZIL 5 MG TAB PO SCH (09:03)
[2023-05-10] MEDS: levETIRAcetam 250MG TABLET (KEPPRA) PO SCH ×2 (09:04→20:40)
[2023-05-10] MEDS: ENOXAPARIN 40MG/0.4ML SYRINGE (J1650 PER 10MG) SC SCH (09:04)
[2023-05-10 09:06] LABS: BLOOD UREA NITROGEN 16 MG/DL (9-23); CALCIUM LEVEL 7.7 MG/DL (8.3-10.6); CARBON DIOXIDE LEVEL 24 MMOL/L (20-31); CHLORIDE LEVEL 111 MMOL/L (98-107); CREATININE FOR GFR 0.97 MG/DL (0.70-1.30); GLOMERULAR FILTRATION RATE > 60.0 (>42); GLUCOSE, FASTING 99 MG/DL (74-106); POTASSIUM SERUM 3.9 MMOL/L (3.5-5.1); SODIUM LEVEL 140 MMOL/L (136-145)
[2023-05-10] MEDS ORDERED: OSEL30CA PO (11:10)
[2023-05-10 14:31] VITALS: BP 114/67; TEMP 98.1; O2SAT 97
[2023-05-10 20:35] VITALS: BP 136/78; TEMP 99; O2SAT 98
[2023-05-10] MEDS: DOCUSATE SODIUM 100MG CAPSULE PO SCH (20:40)
[2023-05-10] MEDS: traZODone 100 MG TAB PO SCH (20:40)
[2023-05-10] MEDS: QUEtiapine FUMARATE 25 MG TAB PO SCH (20:40)
[2023-05-11] MEDS: IPRATROPIUM 0.5MG/ALBUTEROL 2.5MG INH SOL UD 3ML (DUONEB) INH SCH ×4 (00:54→20:23)
[2023-05-11 05:45] VITALS: BP 139/76; TEMP 99; O2SAT 90
[2023-05-11] MEDS: DONEPEZIL 5 MG TAB PO SCH (09:38)
[2023-05-11] MEDS: TAMSULOSIN 0.4 MG CAP PO SCH (09:38)
[2023-05-11] MEDS: OSELTAMIVIR PHOSPHATE 30MG CAPSULE PO SCH ×2 (09:38→20:50)
[2023-05-11] MEDS: levETIRAcetam 250MG TABLET (KEPPRA) PO SCH ×2 (09:38→20:50)
[2023-05-11] MEDS: amLODIPine 5 MG TAB PO SCH (09:38)
[2023-05-11] MEDS: TICAGRELOR 90 MG TABLET (BRILINTA) PO SCH ×2 (09:38→20:50)
[2023-05-11] MEDS: METOPROLOL TART 25 MG TABLET PO SCH ×2 (09:38→20:50)
[2023-05-11] MEDS: ENOXAPARIN 40MG/0.4ML SYRINGE (J1650 PER 10MG) SC SCH (09:39)
[2023-05-11] MEDS: ASPIRIN 81MG ENTERIC TABLET PO SCH (09:39)
[2023-05-11] MEDS ORDERED: PREVNAR-20 VACCINE 0.5ML SYRINGE IM.IMMUN ONE (16:00)
[2023-05-11] MEDS: diphenhydrAMINE 50MG CAP PO PRN (16:48)
[2023-05-11] MEDS: ACETAMINOPHEN TAB 650MG DOSE (2X325MG) PO PRN (16:48)
[2023-05-11 20:05] VITALS: BP 146/88; TEMP 98.4; O2SAT 93
[2023-05-11] MEDS: traZODone 100 MG TAB PO SCH (20:50)
[2023-05-11] MEDS: QUEtiapine FUMARATE 25 MG TAB PO SCH (20:50)
[2023-05-11] MEDS: DOCUSATE SODIUM 100MG CAPSULE PO SCH (20:50)
[2023-05-12] MEDS: IPRATROPIUM 0.5MG/ALBUTEROL 2.5MG INH SOL UD 3ML (DUONEB) INH SCH ×2 (00:50→07:49)
[2023-05-12 04:45] VITALS: BP 144/75; TEMP 99.3; O2SAT 91
[2023-05-12] MEDS: DONEPEZIL 5 MG TAB PO SCH (09:30)
[2023-05-12] MEDS: levETIRAcetam 250MG TABLET (KEPPRA) PO SCH (09:30)
[2023-05-12 09:31] VITALS: BP 144/75
[2023-05-12] MEDS: ACETAMINOPHEN TAB 650MG DOSE (2X325MG) PO PRN (09:31)
[2023-05-12] MEDS: METOPROLOL TART 25 MG TABLET PO SCH (09:31)
[2023-05-12] MEDS: ASPIRIN 81MG ENTERIC TABLET PO SCH (09:31)
[2023-05-12] MEDS: amLODIPine 5 MG TAB PO SCH (09:31)
[2023-05-12] MEDS: TICAGRELOR 90 MG TABLET (BRILINTA) PO SCH (09:31)
[2023-05-12] MEDS: OSELTAMIVIR PHOSPHATE 30MG CAPSULE PO SCH (09:31)
[2023-05-12] MEDS: ENOXAPARIN 40MG/0.4ML SYRINGE (J1650 PER 10MG) SC SCH (09:32)
[2023-05-12] MEDS: TAMSULOSIN 0.4 MG CAP PO SCH (09:32)
== END 2023-05-12 11:30 | disposition home health service (06) | DRG 194 ==
LOC: M ED 03:03 → M ED INP 12:36 → M MS5PR 22:20
PROVIDERS: ADMIT General Practice; ATTEND General Practice
DX: J10.1 Influenza due to other identified influenza virus with other respiratory manifestations (principal); F03.918 Unspecified dementia, unspecified severity, with other behavioral disturbance; I10 Essential (primary) hypertension; E78.00 Pure hypercholesterolemia, unspecified; J45.909 Unspecified asthma, uncomplicated; R53.81 Other malaise; R29.6 Repeated falls; R53.1 Weakness; R41.0 Disorientation, unspecified; R26.89 Other abnormalities of gait and mobility; I71.23 Aneurysm of the descending thoracic aorta, without rupture; K21.9 Gastro-esophageal reflux disease without esophagitis; G43.909 Migraine, unspecified, not intractable, without status migrainosus; Z85.46 Personal history of malignant neoplasm of prostate; Z96.651 Presence of right artificial knee joint; Z86.73 Personal history of transient ischemic attack (TIA), and cerebral infarction without residual deficits; Z87.891 Personal history of nicotine dependence; Z79.82 Long term (current) use of aspirin; Z79.899 Other long term (current) drug therapy; Z88.8 Allergy status to other drugs, medicaments and biological substances

== ENCOUNTER → 2023-06-05 | Outpatient (REF) | payer OTHER ==
[~2023-06-05] MED LIST changes: +ALBU8.5H INH; +DOCU100C16 PO; +DONE10TA90 PO; +OSEL30CA PO; +QUET1TAB17 PO
== END ==
LOC: M SMT 15:29
PROVIDERS: ATTEND Urology
DX: C64.9 Malignant neoplasm of unspecified kidney, except renal pelvis (principal)

== ENCOUNTER 2023-06-18 19:28 | Observation (INO) | payer OTHER ==
[~2023-06-18] VITALS: Ht 170.2 cm; Wt 84.0 kg
[2023-06-18 20:17] LABS: VENOUS BASE EXCESS -2.7 (-2.0-2.0); VENOUS HCO3 21.9 MMOL/L (23.0-27.0); VENOUS O2 SATURATION 83.1 % (60.0-80.0); VENOUS PARTIAL PRESSURE CO2 37.6 mmHg (38.0-50.0); VENOUS PARTIAL PRESSURE O2 46.7 mmHg (30.0-50.0); VENOUS PH 7.383 UNITS (7.330-7.430); VENOUS STANDARD HCO3 21.9 MMOL/L
[2023-06-18 20:23] LABS: BASO % 0.4 % (0.0-1.0); EOS % 0.1 % (0.0-3.0); HEMOGLOBIN 14.7 g/dl (13.5-17.5); LYMPH # 0.5 10^3/uL (1.5-5.0); LYMPH % 4.3 % (24.0-44.0); MEAN CORPUSCULAR HEMOGLOBIN 32.7 pg (27.0-33.0); MEAN CORPUSCULAR HGB CONC 34.2 g/dl (32.0-36.5); MEAN CORPUSCULAR VOLUME 95.6 fl (80.0-96.0); MONO # 0.5 10^3/uL (0.0-0.8); MONO % 4.7 % (2.0-8.0); NEUTROPHILS # 9.5 10^3/uL (1.5-8.5); PLATELET COUNT, AUTOMATED 165 10^3/uL (150-450); WHITE BLOOD COUNT 10.5 10^3/uL (4.0-10.0)
[2023-06-18 20:45] LABS: ETHYL ALCOHOL (ETHANOL) < 0.003 % (0.000-0.010)
[2023-06-18 20:47] LABS: BLOOD UREA NITROGEN 15 MG/DL (9-23); CALCIUM LEVEL 8.3 MG/DL (8.3-10.6); CARBON DIOXIDE LEVEL 23 MMOL/L (20-31); CHLORIDE LEVEL 108 MMOL/L (98-107); CREATININE FOR GFR 0.89 MG/DL (0.70-1.30); GLOMERULAR FILTRATION RATE > 60.0 (>42); GLUCOSE, FASTING 159 MG/DL (74-106); MAGNESIUM LEVEL 1.7 MG/DL (1.8-2.4); POTASSIUM SERUM 3.9 MMOL/L (3.5-5.1); SODIUM LEVEL 140 MMOL/L (136-145)
[2023-06-18 20:49] LABS: FREE T4 1.24 NG/DL (0.89-1.76); THYROID STIMULATING HORMONE 1.727 uIU/ML (0.55-4.78)
[2023-06-18] MEDS: NS 1,000 ML IV ONE (21:02)
[2023-06-18] MEDS: MAG SULF 1GM/100ML (MAG RUN) 1 GM in IV 1 EA IV ONE (22:56)
[2023-06-18 23:12] LABS: AMPHETAMINES LEVEL URINE NEGATIVE (NEGATIVE); BARBITURATES URINE NEGATIVE (NEGATIVE); BENZODIAZEPINES URINE NEGATIVE (NEGATIVE); CANNABINOIDS URINE NEGATIVE (NEGATIVE); COCAINE METABOLITE URINE NEGATIVE (NEGATIVE); METHADONE URINE NEGATIVE (NEGATIVE); OPIATES URINE NEGATIVE (NEGATIVE); PHENCYCLIDINE URINE NEGATIVE (NEGATIVE)
[2023-06-18] MEDS ORDERED: ISOVUE-370 76% 100ML VIAL As Ordered ONE (23:44)
[2023-06-19 02:15] LABS: PROCALCITONIN <0.04 ng/ml
[2023-06-19] MEDS: cefTRIAXone SOD 2 GM in D5W MINI-BAG PLUS 50 ML IV ONE (02:20)
[2023-06-19] MEDS ORDERED: QUET1TAB17 PO (02:49)
[2023-06-19] MEDS ORDERED: HOME MED LIST COMPLETE! XX SCH (02:50)
[2023-06-19] MEDS ORDERED: ONDANSETRON 4MG 2ML VIAL IV PRN (04:10)
[2023-06-19] MEDS: NS 1,000 ML IV SCH (04:47)
[2023-06-19 06:32] VITALS: BP 135/94; TEMP 98.3; O2SAT 94
[2023-06-19 07:00] LABS: BLOOD UREA NITROGEN 11 MG/DL (9-23); CALCIUM LEVEL 7.8 MG/DL (8.3-10.6); CARBON DIOXIDE LEVEL 24 MMOL/L (20-31); CHLORIDE LEVEL 111 MMOL/L (98-107); CREATININE FOR GFR 0.87 MG/DL (0.70-1.30); GLOMERULAR FILTRATION RATE > 60.0 (>42); GLUCOSE, FASTING 119 MG/DL (74-106); POTASSIUM SERUM 3.8 MMOL/L (3.5-5.1); SODIUM LEVEL 143 MMOL/L (136-145)
[2023-06-19] MEDS ORDERED: QUEtiapine FUMARATE 25 MG TAB PO PRN (07:10)
[2023-06-19 07:33] LABS: BASO % 0.4 % (0.0-1.0); EOS % 0.4 % (0.0-3.0); HEMATOCRIT 38.8 % (42.0-52.0); HEMOGLOBIN 13.2 g/dl (13.5-17.5); LYMPH % 11.9 % (24.0-44.0); MEAN CORPUSCULAR HEMOGLOBIN 32.8 pg (27.0-33.0); MEAN CORPUSCULAR VOLUME 96.3 fl (80.0-96.0); MONO # 0.7 10^3/uL (0.0-0.8); MONO % 9.2 % (2.0-8.0); NEUTROPHILS # 6.2 10^3/uL (1.5-8.5); NEUTROPHILS % 77.8 % (36.0-66.0); PLATELET COUNT, AUTOMATED 173 10^3/uL (150-450); RED BLOOD COUNT 4.03 10^6/uL (4.30-6.10)
[2023-06-19 08:25] VITALS: BP 148/82; TEMP 97.6; O2SAT 91
[2023-06-19] MEDS: HEPARIN SOD (PORCINE) 5000UNITS/ML 1ML VIAL/SYRINGE SC SCH (08:33)
[2023-06-19] MEDS: levETIRAcetam 250MG TABLET (KEPPRA) PO SCH (08:34)
[2023-06-19] MEDS: METOPROLOL TART 25 MG TABLET PO SCH (08:34)
[2023-06-19] MEDS: amLODIPine 5 MG TAB PO SCH (08:34)
[2023-06-19] MEDS: TICAGRELOR 90 MG TABLET (BRILINTA) PO SCH (08:34)
[2023-06-19] MEDS: TAMSULOSIN 0.4 MG CAP PO SCH (08:34)
[2023-06-19] MEDS: DONEPEZIL 5 MG TAB PO SCH (08:34)
[2023-06-19] MEDS: ASPIRIN 81MG ENTERIC TABLET PO SCH (08:34)
[2023-06-19 11:32] VITALS: BP 126/76; TEMP 98.3; O2SAT 96
[2023-06-19 15:59] VITALS: BP 139/70; TEMP 97.2; O2SAT 94
[2023-06-19 17:36] LABS: FOLATE 10.81 NG/ML (>5.4)
[2023-06-19 19:33] VITALS: BP 150/71; TEMP 97.8; O2SAT 91
[2023-06-19] MEDS: DOCUSATE SODIUM 100MG CAPSULE PO SCH (21:43)
[2023-06-19] MEDS: QUEtiapine FUMARATE 25 MG TAB PO SCH (21:43)
[2023-06-19] MEDS: traZODone 100 MG TAB PO SCH (21:43)
[2023-06-19 23:40] VITALS: BP 153/90; TEMP 97.1; O2SAT 94
[2023-06-20 04:00] VITALS: BP 147/76; TEMP 97.3; O2SAT 96
[2023-06-20 04:34] LABS: BASO # 0.1 10^3/uL (0.0-0.2); BASO % 0.8 % (0.0-1.0); EOS # 0.2 10^3/uL (0.0-0.5); EOS % 2.5 % (0.0-3.0); HEMATOCRIT 39.2 % (42.0-52.0); HEMOGLOBIN 12.9 g/dl (13.5-17.5); LYMPH # 1.7 10^3/uL (1.5-5.0); LYMPH % 23.9 % (24.0-44.0); MEAN CORPUSCULAR HGB CONC 32.9 g/dl (32.0-36.5); MEAN CORPUSCULAR VOLUME 97.3 fl (80.0-96.0); MONO # 0.8 10^3/uL (0.0-0.8); MONO % 10.7 % (2.0-8.0); NEUTROPHILS # 4.4 10^3/uL (1.5-8.5); NEUTROPHILS % 61.8 % (36.0-66.0); PLATELET COUNT, AUTOMATED 167 10^3/uL (150-450); RED BLOOD COUNT 4.03 10^6/uL (4.30-6.10); WHITE BLOOD COUNT 7.2 10^3/uL (4.0-10.0)
[2023-06-20 04:59] LABS: BLOOD UREA NITROGEN 12 MG/DL (9-23); CALCIUM LEVEL 8.1 MG/DL (8.3-10.6); CARBON DIOXIDE LEVEL 26 MMOL/L (20-31); CHLORIDE LEVEL 111 MMOL/L (98-107); CREATININE FOR GFR 0.83 MG/DL (0.70-1.30); GLOMERULAR FILTRATION RATE > 60.0 (>42); GLUCOSE, FASTING 99 MG/DL (74-106); MAGNESIUM LEVEL 1.8 MG/DL (1.8-2.4); POTASSIUM SERUM 3.7 MMOL/L (3.5-5.1); SODIUM LEVEL 141 MMOL/L (136-145)
[2023-06-20 07:39] VITALS: BP 158/73; TEMP 97.6; O2SAT 95
[2023-06-20 12:05] VITALS: BP 130/74; TEMP 97.2; O2SAT 98
[2023-06-20 19:36] VITALS: BP 141/69; TEMP 97.1; O2SAT 93
[2023-06-20] MEDS: MEMANTINE 5MG TABLET (NAMENDA) PO SCH (21:22)
[2023-06-20 22:00] VITALS: BP 162/69; TEMP 97.5; O2SAT 95
[2023-06-21 05:42] VITALS: BP 156/75; TEMP 97.2; O2SAT 95
[2023-06-21 06:06] LABS: HEMATOCRIT 40.2 % (42.0-52.0); HEMOGLOBIN 13.6 g/dl (13.5-17.5); MEAN CORPUSCULAR HEMOGLOBIN 32.3 pg (27.0-33.0); MEAN CORPUSCULAR HGB CONC 33.8 g/dl (32.0-36.5); MEAN CORPUSCULAR VOLUME 95.5 fl (80.0-96.0); PLATELET COUNT, AUTOMATED 162 10^3/uL (150-450); RED BLOOD COUNT 4.21 10^6/uL (4.30-6.10); WHITE BLOOD COUNT 6.8 10^3/uL (4.0-10.0)
[2023-06-21 06:34] LABS: BLOOD UREA NITROGEN 18 MG/DL (9-23); CALCIUM LEVEL 8.4 MG/DL (8.3-10.6); CARBON DIOXIDE LEVEL 27 MMOL/L (20-31); CHLORIDE LEVEL 109 MMOL/L (98-107); CHOLESTEROL LEVEL 223 MG/DL (<200); CHOLESTEROL RISK RATIO 4.95 (<5); CREATININE FOR GFR 0.94 MG/DL (0.70-1.30); GLOMERULAR FILTRATION RATE > 60.0 (>42); GLUCOSE, FASTING 98 MG/DL (74-106); LDL CHOLESTEROL 161.2 MG/DL (<100); MAGNESIUM LEVEL 1.9 MG/DL (1.8-2.4); POTASSIUM SERUM 3.8 MMOL/L (3.5-5.1); SODIUM LEVEL 140 MMOL/L (136-145); TRIGLYCERIDES LEVEL 84 MG/DL (<150)
[2023-06-21 08:54] VITALS: BP 157/68
[2023-06-21] MEDS: ROSUVASTATIN 10 MG TAB (CRESTOR) PO SCH (10:25)
[2023-06-21] MEDS ORDERED: ROSU20TA61 PO (13:02)
[2023-06-21] MEDS ORDERED: MEMA10TA19 PO (13:02)
== END 2023-06-21 14:15 ==
LOC: M ED 19:28 → M ED INP 19:29 → ENRESERV 06-19 05:01 → M PCU 06-19 06:31 → M MS5PR 06-20 21:55
PROVIDERS: ADMIT Internal Medicine; ATTEND Internal Medicine
DX: G93.40 Encephalopathy, unspecified (principal); G31.83 Neurocognitive disorder with Lewy bodies; F02.83 Dementia in other diseases classified elsewhere, unspecified severity, with mood disturbance; G20.A1 Parkinson's disease without dyskinesia, without mention of fluctuations; F02.80 Dementia in other diseases classified elsewhere, unspecified severity, without behavioral disturbance, psychotic disturbance, mood disturbance, and anxiety; F03.93 Unspecified dementia, unspecified severity, with mood disturbance; G93.89 Other specified disorders of brain; Z86.73 Personal history of transient ischemic attack (TIA), and cerebral infarction without residual deficits; E78.5 Hyperlipidemia, unspecified; I10 Essential (primary) hypertension; G40.909 Epilepsy, unspecified, not intractable, without status epilepticus; Z85.46 Personal history of malignant neoplasm of prostate; Z85.51 Personal history of malignant neoplasm of bladder; I66.23 Occlusion and stenosis of bilateral posterior cerebral arteries; I65.01 Occlusion and stenosis of right vertebral artery; I65.23 Occlusion and stenosis of bilateral carotid arteries; R53.1 Weakness; J44.9 Chronic obstructive pulmonary disease, unspecified; R25.1 Tremor, unspecified; E87.20 Acidosis, unspecified; R41.82 Altered mental status, unspecified; I67.82 Cerebral ischemia; G31.1 Senile degeneration of brain, not elsewhere classified; I65.1 Occlusion and stenosis of basilar artery; R44.1 Visual hallucinations; R26.2 Difficulty in walking, not elsewhere classified; Z88.8 Allergy status to other drugs, medicaments and biological substances; Z79.899 Other long term (current) drug therapy; Z79.82 Long term (current) use of aspirin; Z66 Do not resuscitate
CPT/HCPCS: 36415; 70450; 70496; 70498; 70544; 70547; 70551; 71045; 72125; 72146; 72148; 80047; 80048; 80307; 81001; 82077; 82525; 82607; 82746; 82803; 83605; 83735; 84145; 84439; 84443; 85025; 87040; 87486; 87581; 87633; 87798; 93005; 93041; 94760; 96361; 96365; 96367; 96372; 97161; 97530; 99285; G0378; J0696; J3475; Q9967

== ENCOUNTER 2023-06-21 12:36 | Inpatient (IN) | payer OTHER ==
[~2023-06-21] VITALS: Ht 167.6 cm; Wt 78.1 kg
[2023-06-21] MEDS ORDERED: MEMA10TA19 PO (13:02)
[2023-06-21] MEDS ORDERED: ROSU20TA61 PO (13:02)
[2023-06-21 14:20] VITALS: BP 131/69; TEMP 97.8; O2SAT 99
[2023-06-21] MEDS ORDERED: QUEtiapine FUMARATE 25 MG TAB PO PRN (14:45)
[2023-06-21 19:34] VITALS: BP 129/69; TEMP 98; O2SAT 97
[2023-06-21] MEDS: levETIRAcetam 250MG TABLET (KEPPRA) PO SCH (20:17)
[2023-06-21] MEDS: METOPROLOL TART 25 MG TABLET PO SCH (20:17)
[2023-06-21] MEDS: traZODone 100 MG TAB PO SCH (20:17)
[2023-06-21] MEDS: QUEtiapine FUMARATE 25 MG TAB PO SCH (20:17)
[2023-06-21] MEDS: MEMANTINE 5MG TABLET (NAMENDA) PO SCH (20:17)
[2023-06-21] MEDS: DOCUSATE SODIUM 100MG CAPSULE PO SCH (20:17)
[2023-06-21] MEDS: HEPARIN SOD (PORCINE) 5000UNITS/ML 1ML VIAL/SYRINGE SQ SCH (20:17)
[2023-06-21] MEDS: TICAGRELOR 90 MG TABLET (BRILINTA) PO SCH (20:17)
[2023-06-22 05:56] VITALS: BP 134/68; TEMP 98.2; O2SAT 92
[2023-06-22] MEDS: DONEPEZIL 5 MG TAB PO SCH (08:07)
[2023-06-22] MEDS: ASPIRIN 81MG ENTERIC TABLET PO SCH (08:08)
[2023-06-22] MEDS: TAMSULOSIN 0.4 MG CAP PO SCH (08:08)
[2023-06-22] MEDS: amLODIPine 5 MG TAB PO SCH (08:09)
[2023-06-22 14:00] VITALS: BP 106/64; TEMP 97.5; O2SAT 96
[2023-06-22 20:00] VITALS: BP 127/75; TEMP 97.9; O2SAT 97
[2023-06-22] MEDS: ROSUVASTATIN 10 MG TAB (CRESTOR) PO SCH (21:42)
[2023-06-23 06:00] VITALS: BP 137/70; TEMP 97.7; O2SAT 94
[2023-06-23 14:00] VITALS: BP 120/65; TEMP 98; O2SAT 93
[2023-06-23 20:00] VITALS: BP 143/67; TEMP 97.6; O2SAT 94
[2023-06-24 06:00] VITALS: BP 131/72; TEMP 98.5; O2SAT 94
[2023-06-24 07:05] LABS: HEMATOCRIT 39.6 % (42.0-52.0); HEMOGLOBIN 13.2 g/dl (13.5-17.5); MEAN CORPUSCULAR HEMOGLOBIN 32.4 pg (27.0-33.0); MEAN CORPUSCULAR HGB CONC 33.3 g/dl (32.0-36.5); MEAN CORPUSCULAR VOLUME 97.1 fl (80.0-96.0); PLATELET COUNT, AUTOMATED 174 10^3/uL (150-450); RED BLOOD COUNT 4.08 10^6/uL (4.30-6.10); WHITE BLOOD COUNT 6.8 10^3/uL (4.0-10.0)
[2023-06-24 14:00] VITALS: BP 120/67; TEMP 98.2; O2SAT 96
[2023-06-24 20:00] VITALS: BP 165/85; TEMP 98.2; O2SAT 95
[2023-06-25 06:00] VITALS: BP 126/63; TEMP 98.1; O2SAT 94
[2023-06-25 14:00] VITALS: BP 109/63; TEMP 98; O2SAT 97
[2023-06-25 20:00] VITALS: BP 134/72; TEMP 97.1; O2SAT 98
[2023-06-26 06:00] VITALS: BP 119/65; TEMP 97.6; O2SAT 97
[2023-06-26 14:00] VITALS: BP 108/62; TEMP 97.4; O2SAT 93
[2023-06-26 20:00] VITALS: BP 151/70; TEMP 98.1; O2SAT 96
[2023-06-27 06:00] VITALS: BP 123/70; TEMP 98.1; O2SAT 95
[2023-06-27 07:58] LABS: HEMATOCRIT 42.6 % (42.0-52.0); HEMOGLOBIN 14.2 g/dl (13.5-17.5); MEAN CORPUSCULAR HGB CONC 33.3 g/dl (32.0-36.5); MEAN CORPUSCULAR VOLUME 99.1 fl (80.0-96.0); PLATELET COUNT, AUTOMATED 197 10^3/uL (150-450); WHITE BLOOD COUNT 6.5 10^3/uL (4.0-10.0)
[2023-06-27 13:30] VITALS: BP 123/65; TEMP 98.1; O2SAT 94
[2023-06-27 20:00] VITALS: BP 137/76; TEMP 97.1; O2SAT 92
[2023-06-28 06:00] VITALS: BP 123/75; TEMP 98.1; O2SAT 92
[2023-06-28 09:06] VITALS: BP 123/75
== END 2023-06-28 13:15 | disposition home or self-care (01) | DRG 92 ==
LOC: M PM&R 14:37
PROVIDERS: ADMIT Student in an Organized Health Care Education/Training Program; ATTEND Physical Medicine & Rehabilitation
DX: R26.89 Other abnormalities of gait and mobility (principal); F02.83 Dementia in other diseases classified elsewhere, unspecified severity, with mood disturbance; G31.83 Neurocognitive disorder with Lewy bodies; G20.C Parkinsonism, unspecified; G40.909 Epilepsy, unspecified, not intractable, without status epilepticus; I10 Essential (primary) hypertension; E78.5 Hyperlipidemia, unspecified; R29.6 Repeated falls; I66.23 Occlusion and stenosis of bilateral posterior cerebral arteries; J44.9 Chronic obstructive pulmonary disease, unspecified; I65.1 Occlusion and stenosis of basilar artery; I65.01 Occlusion and stenosis of right vertebral artery; R13.10 Dysphagia, unspecified; Z90.79 Acquired absence of other genital organ(s); G47.33 Obstructive sleep apnea (adult) (pediatric); Z86.73 Personal history of transient ischemic attack (TIA), and cerebral infarction without residual deficits; Z85.46 Personal history of malignant neoplasm of prostate; Z85.51 Personal history of malignant neoplasm of bladder; Z99.81 Dependence on supplemental oxygen; Z66 Do not resuscitate; Z74.1 Need for assistance with personal care; Z74.09 Other reduced mobility; Z79.82 Long term (current) use of aspirin; Z79.899 Other long term (current) drug therapy; Z88.8 Allergy status to other drugs, medicaments and biological substances; Z96.651 Presence of right artificial knee joint

== ENCOUNTER 2024-01-03 13:38 | Observation (INO) | payer OTHER ==
[~2024-01-03] VITALS: Ht 167.6 cm; Wt 75.3 kg
[~2024-01-03 13:38] MED LIST changes: +CARB1TAB16 PO; +MEMA10TA PO; +MULTTAB61 PO; +ROSU20TA61 PO; +ROSU40TA81 PO
[2024-01-03 16:04] LABS: BASO % 0.6 % (0.0-1.0); EOS # 0.1 10^3/uL (0.0-0.5); EOS % 0.9 % (0.0-3.0); HEMATOCRIT 41.7 % (42.0-52.0); HEMOGLOBIN 13.7 g/dl (13.5-17.5); LYMPH # 1.3 10^3/uL (1.5-5.0); LYMPH % 18.6 % (24.0-44.0); MEAN CORPUSCULAR HEMOGLOBIN 31.9 pg (27.0-33.0); MEAN CORPUSCULAR HGB CONC 32.9 g/dl (32.0-36.5); MONO # 0.6 10^3/uL (0.0-0.8); MONO % 9.3 % (2.0-8.0); NEUTROPHILS # 4.8 10^3/uL (1.5-8.5); NEUTROPHILS % 70.3 % (36.0-66.0); PLATELET COUNT, AUTOMATED 205 10^3/uL (150-450); WHITE BLOOD COUNT 6.8 10^3/uL (4.0-10.0)
[2024-01-03 16:26] LABS: ALBUMIN 3.4 G/DL (3.2-5.2); ALKALINE PHOSPHATASE 69 U/L (46-116); ALT/SGPT 18 U/L (7.0-40); AST/SGOT 17 U/L (<34); BILIRUBIN,DIRECT 0.2 MG/DL (<0.4); BILIRUBIN,TOTAL 0.5 MG/DL (0.3-1.2); BLOOD UREA NITROGEN 14 MG/DL (9-23); CALCIUM LEVEL 9.2 MG/DL (8.3-10.6); CARBON DIOXIDE LEVEL 27 MMOL/L (20-31); CHLORIDE LEVEL 109 MMOL/L (98-107); CREATININE FOR GFR 0.95 MG/DL (0.70-1.30); GLOMERULAR FILTRATION RATE > 60.0 (>35); GLUCOSE, FASTING 114 MG/DL (74-106); POTASSIUM SERUM 4.2 MMOL/L (3.5-5.1); SODIUM LEVEL 140 MMOL/L (136-145)
[2024-01-03 16:28] LABS: THYROID STIMULATING HORMONE 1.096 uIU/ML (0.55-4.78)
[2024-01-03] MEDS ORDERED: MAALOX 30 ML SUSP *UDC PO PRN (17:40)
[2024-01-03] MEDS ORDERED: MEMA10TA PO (17:48)
[2024-01-03] MEDS ORDERED: CARB25TA9 PO (17:48)
[2024-01-03] MEDS ORDERED: HOME MED LIST COMPLETE! XX SCH (17:50)
[2024-01-03] MEDS: DOCUSATE SODIUM 100MG CAPSULE PO SCH (22:02)
[2024-01-04] MEDS: ASPIRIN 325 MG TAB PO SCH (08:32)
[2024-01-04] MEDS: TAMSULOSIN 0.4 MG CAP PO SCH (08:32)
[2024-01-04] MEDS: ENOXAPARIN 40MG/0.4ML SYRINGE (J1650 PER 10MG) SC SCH (08:32)
[2024-01-04] MEDS: levETIRAcetam 250MG TABLET (KEPPRA) PO SCH (08:37)
[2024-01-04] MEDS: METOPROLOL TART 25 MG TABLET PO SCH (08:40)
[2024-01-04] MEDS: amLODIPine 5 MG TAB PO SCH (08:41)
[2024-01-04] MEDS: TICAGRELOR 90 MG TABLET (BRILINTA) PO SCH (09:42)
[2024-01-04] MEDS: DONEPEZIL 5 MG TAB PO SCH (09:42)
[2024-01-04] MEDS: MEMANTINE 5MG TABLET (NAMENDA) PO SCH (09:42)
[2024-01-04] MEDS: SINEMET 25-100 MG TAB PO SCH (09:45)
[2024-01-04] MEDS: QUEtiapine FUMARATE 25 MG TAB PO SCH (22:27)
[2024-01-04] MEDS: ROSUVASTATIN 10 MG TAB (CRESTOR) PO SCH (22:27)
[2024-01-04] MEDS: traZODone 100 MG TAB PO SCH (22:27)
[2024-01-05] MEDS ORDERED: ACETAMINOPHEN TAB 650MG DOSE (2X325MG) PO PRN (13:50)
[2024-01-05 15:45] VITALS: BP 113/78; TEMP 97.7; O2SAT 97
[2024-01-05 19:32] VITALS: BP 114/70; TEMP 97.7; O2SAT 92
[2024-01-05] MEDS ORDERED: DOCUSATE SODIUM 100MG CAPSULE PO SCH (21:00)
[2024-01-06 04:00] VITALS: BP 134/79; TEMP 97.8; O2SAT 93
[2024-01-06 06:33] LABS: HEMATOCRIT 40.2 % (42.0-52.0); HEMOGLOBIN 13.4 g/dl (13.5-17.5); MEAN CORPUSCULAR HEMOGLOBIN 32.5 pg (27.0-33.0); MEAN CORPUSCULAR HGB CONC 33.3 g/dl (32.0-36.5); MEAN CORPUSCULAR VOLUME 97.6 fl (80.0-96.0); PLATELET COUNT, AUTOMATED 173 10^3/uL (150-450); RED BLOOD COUNT 4.12 10^6/uL (4.30-6.10); WHITE BLOOD COUNT 8.1 10^3/uL (4.0-10.0)
[2024-01-06 06:54] LABS: BLOOD UREA NITROGEN 20 MG/DL (9-23); CALCIUM LEVEL 8.5 MG/DL (8.3-10.6); CARBON DIOXIDE LEVEL 25 MMOL/L (20-31); CHLORIDE LEVEL 110 MMOL/L (98-107); CREATININE FOR GFR 0.95 MG/DL (0.70-1.30); GLOMERULAR FILTRATION RATE > 60.0 (>35); GLUCOSE, FASTING 104 MG/DL (74-106); POTASSIUM SERUM 4.1 MMOL/L (3.5-5.1); SODIUM LEVEL 139 MMOL/L (136-145)
[2024-01-06 11:52] VITALS: BP 106/65; TEMP 97.7; O2SAT 92
[2024-01-06 20:57] VITALS: BP 113/69; TEMP 97.9
[2024-01-07 05:30] VITALS: BP 117/69; TEMP 97.9; O2SAT 92
[2024-01-07] MEDS: ACETAMINOPHEN TAB 650MG DOSE (2X325MG) PO PRN (08:28)
[2024-01-07 12:00] VITALS: BP 120/67; TEMP 97.5; O2SAT 98
[2024-01-07 21:02] VITALS: BP 138/84; TEMP 97.9; O2SAT 97
[2024-01-08] MEDS ORDERED: PERMETHRIN 5% CREAM 60 GM TOP SCH
[2024-01-08 05:14] VITALS: BP 137/84; TEMP 97.7; O2SAT 96
[2024-01-08 06:19] LABS: HEMATOCRIT 39.9 % (42.0-52.0); HEMOGLOBIN 13.2 g/dl (13.5-17.5); MEAN CORPUSCULAR HGB CONC 33.1 g/dl (32.0-36.5); MEAN CORPUSCULAR VOLUME 96.8 fl (80.0-96.0); PLATELET COUNT, AUTOMATED 175 10^3/uL (150-450); RED BLOOD COUNT 4.12 10^6/uL (4.30-6.10); WHITE BLOOD COUNT 7.9 10^3/uL (4.0-10.0)
[2024-01-08 06:43] LABS: BLOOD UREA NITROGEN 14 MG/DL (9-23); CALCIUM LEVEL 8.5 MG/DL (8.3-10.6); CARBON DIOXIDE LEVEL 26 MMOL/L (20-31); CHLORIDE LEVEL 108 MMOL/L (98-107); GLOMERULAR FILTRATION RATE > 60.0 (>35); GLUCOSE, FASTING 97 MG/DL (74-106); POTASSIUM SERUM 3.9 MMOL/L (3.5-5.1); SODIUM LEVEL 140 MMOL/L (136-145)
[2024-01-08] MEDS: MOM 30ML SUSPENSION UDC PO PRN (08:32)
[2024-01-08] MEDS: ASPIRIN 81MG ENTERIC TABLET PO SCH (08:32)
[2024-01-08 12:00] VITALS: BP 116/68; TEMP 96.7; O2SAT 94
[2024-01-08] MEDS: PERMETHRIN 5% CREAM 60 GM TOP ONE (20:39)
[2024-01-08 21:18] VITALS: BP 119/68; TEMP 98.1; O2SAT 95
[2024-01-09 04:00] VITALS: BP 128/71; TEMP 97.9; O2SAT 96
[2024-01-09 07:00] LABS: HEMATOCRIT 38.9 % (42.0-52.0); HEMOGLOBIN 12.6 g/dl (13.5-17.5); MEAN CORPUSCULAR HEMOGLOBIN 31.3 pg (27.0-33.0); MEAN CORPUSCULAR HGB CONC 32.4 g/dl (32.0-36.5); MEAN CORPUSCULAR VOLUME 96.8 fl (80.0-96.0); PLATELET COUNT, AUTOMATED 161 10^3/uL (150-450); RED BLOOD COUNT 4.02 10^6/uL (4.30-6.10); WHITE BLOOD COUNT 7.2 10^3/uL (4.0-10.0)
[2024-01-09 12:00] VITALS: BP 120/68; TEMP 97.9; O2SAT 95
[2024-01-09 20:19] VITALS: BP 120/68; TEMP 97.9; O2SAT 96
[2024-01-10 00:48] VITALS: BP 120/68; TEMP 97.9; O2SAT 96
[2024-01-10 04:11] VITALS: BP 124/68; TEMP 98.2
[2024-01-10 05:15] VITALS: BP 127/70; TEMP 98.1; O2SAT 96
[2024-01-10 07:01] LABS: ALBUMIN 3.1 G/DL (3.2-5.2); ALKALINE PHOSPHATASE 68 U/L (46-116); ALT/SGPT 14 U/L (7.0-40); AST/SGOT 17 U/L (<34); BILIRUBIN,TOTAL 0.5 MG/DL (0.3-1.2); BLOOD UREA NITROGEN 19 MG/DL (9-23); CALCIUM LEVEL 8.5 MG/DL (8.3-10.6); CARBON DIOXIDE LEVEL 26 MMOL/L (20-31); CHLORIDE LEVEL 109 MMOL/L (98-107); CREATININE FOR GFR 0.85 MG/DL (0.70-1.30); GLOMERULAR FILTRATION RATE > 60.0 (>35); GLUCOSE, FASTING 98 MG/DL (74-106); POTASSIUM SERUM 3.8 MMOL/L (3.5-5.1); SODIUM LEVEL 140 MMOL/L (136-145); TOTAL PROTEIN 5.5 G/DL (5.7-8.2)
[2024-01-10 12:00] VITALS: BP 126/69; TEMP 98.3; O2SAT 99
[2024-01-10 19:42] VITALS: BP 118/76; TEMP 97.7; O2SAT 97
[2024-01-10 23:58] VITALS: BP 117/70; TEMP 97.7; O2SAT 97
[2024-01-11 05:15] VITALS: BP 126/75; TEMP 97.7; O2SAT 97
[2024-01-11 08:51] VITALS: BP 122/70
== END 2024-01-11 11:30 | disposition home health service (06) ==
LOC: M ED 13:38 → M ED INP 01-05 13:39 → M MS5PR 01-05 15:15
PROVIDERS: ADMIT Internal Medicine; ATTEND Internal Medicine
DX: G31.83 Neurocognitive disorder with Lewy bodies (principal); F02.80 Dementia in other diseases classified elsewhere, unspecified severity, without behavioral disturbance, psychotic disturbance, mood disturbance, and anxiety; R26.81 Unsteadiness on feet; R41.0 Disorientation, unspecified; R44.3 Hallucinations, unspecified; J44.9 Chronic obstructive pulmonary disease, unspecified; C61 Malignant neoplasm of prostate; C67.9 Malignant neoplasm of bladder, unspecified; Z86.73 Personal history of transient ischemic attack (TIA), and cerebral infarction without residual deficits; Z82.3 Family history of stroke; Z82.0 Family history of epilepsy and other diseases of the nervous system; Z88.8 Allergy status to other drugs, medicaments and biological substances; Z79.899 Other long term (current) drug therapy; Z79.82 Long term (current) use of aspirin; F17.210 Nicotine dependence, cigarettes, uncomplicated
CPT/HCPCS: 36415; 70450; 71045; 80048; 80053; 80076; 81001; 82140; 84443; 85025; 85027; 93005; 93041; 94760; 96372; 97116; 97161; 99285; G0378; J1650

== ENCOUNTER → 2024-11-07 | Outpatient (REF) | payer OTHER ==
[~2024-11-07] MED LIST changes: +CARB25TA9 PO; -FLOM0.4C39 PO; -ROSU20TA61 PO; +ROSU20TA86 PO; +TAMS-18 PO
== END ==
LOC: M SMT 13:19
PROVIDERS: ATTEND Urology
DX: C67.9 Malignant neoplasm of bladder, unspecified (principal)

== ENCOUNTER → 2024-11-14 | Outpatient (REF) | payer OTHER | LOC: M SMT 12:49 | PROVIDERS: ATTEND Urology | DX: C67.9 Malignant neoplasm of bladder, unspecified (principal) ==

== ENCOUNTER → 2024-12-05 | Outpatient (CLI) | payer OTHER ==
[~2024-12-05] MED LIST changes: +ISOVUE-370 76% 100 ML VIAL ONE; +SENN-225 PO; -SENO8.6T5 PO
== END ==
LOC: M PLAIMG 09:08
PROVIDERS: ATTEND Urology
DX: C67.9 Malignant neoplasm of bladder, unspecified (principal)
CPT/HCPCS: 74178; Q9967

== ENCOUNTER 2025-01-30 07:46 | Day surgery (SDC) | payer OTHER ==
[~2025-01-30] VITALS: Ht 175.3 cm; Wt 74.2 kg
[~2025-01-30 07:46] MED LIST changes: -EZET10TA21 PO; +EZET10TA57 PO; -ISOVUE-370 76% 100 ML VIAL ONE; +PHENYLEPHRINE 10% OPHTH SOL 5ML OD PRN
[2025-01-30] MEDS: CYCLOPENTOLATE 1% OPHTH SOLN 2 ML BTL OD SCH (09:20)
[2025-01-30] MEDS: LIDOCAINE 3.5% 1 ML OPHTH TOPICAL GEL OU ONE (09:20)
[2025-01-30] MEDS: PHENYLEPHRINE 2.5% OPHTH SOL 2ML OD SCH (09:20)
[2025-01-30] MEDS: TROPICAMIDE 1% OPHTH SOLN 15ML OD SCH (09:20)
[2025-01-30] MEDS: OFLOXACIN 0.3 % (OCUFLOX) OPTH SOL 5ML OD ONE (09:20)
[2025-01-30] MEDS: CEFUROXIME 1 MG/0.1 ML INTRACAMERAL INJ As Ordered ONE (10:06)
[2025-01-30] MEDS: LIDOCAINE 1% SDV 5 ML VIAL As Ordered ONE (10:06)
[2025-01-30] MEDS: BSS IRRIG/VANCO(10MG)/TOBRA(5MG)/EPINEPH(1:1000-0.5CC)500ML BAG-ORONLY As Ordered ONE (10:07)
[2025-01-30 10:20] VITALS: BP 137/62; TEMP 96.9; O2SAT 95
== END 2025-01-30 10:33 | disposition home or self-care (01) ==
LOC: M SDC 07:46
PROVIDERS: ATTEND Ophthalmology
DX: H25.11 Age-related nuclear cataract, right eye (principal); H57.03 Miosis; I25.10 Atherosclerotic heart disease of native coronary artery without angina pectoris; I10 Essential (primary) hypertension; G47.30 Sleep apnea, unspecified; Z86.73 Personal history of transient ischemic attack (TIA), and cerebral infarction without residual deficits; Z88.8 Allergy status to other drugs, medicaments and biological substances; Z79.899 Other long term (current) drug therapy
CPT/HCPCS: 66982; J0697; J3010; V2632

== ENCOUNTER 2025-02-13 08:44 | Day surgery (SDC) | payer OTHER ==
[~2025-02-13] VITALS: Ht 172.7 cm; Wt 74.0 kg
[2025-02-13] MEDS: LIDOCAINE 3.5% 1 ML OPHTH TOPICAL GEL OU ONE (06:00)
[2025-02-13] MEDS: OFLOXACIN 0.3 % (OCUFLOX) OPTH SOL 5ML OS ONE (06:00)
[2025-02-13] MEDS: BSS IRRIG/VANCO(10MG)/TOBRA(5MG)/EPINEPH(1:1000-0.5CC)500ML BAG-ORONLY As Ordered ONE (07:10)
[~2025-02-13 08:44] MED LIST changes: +MIDAZOLAM INJ 2 MG/2 ML VIAL As Ordered ONE; -PHENYLEPHRINE 10% OPHTH SOL 5ML OD PRN; +PHENYLEPHRINE 10% OPHTH SOL 5ML OS PRN
[2025-02-13] MEDS: LEVALBUTEROL 1.25 MG 0.5ML CONCENTRATE NEB NEB ONE (09:40)
[2025-02-13] MEDS: LIDOCAINE 1% SDV 5 ML VIAL As Ordered ONE (10:15)
[2025-02-13] MEDS: CEFUROXIME 1 MG/0.1 ML INTRACAMERAL INJ As Ordered ONE (10:16)
[2025-02-13] MEDS: PHENYLEPHRINE 2.5% OPHTH SOL 2ML OS SCH (10:32)
[2025-02-13] MEDS: TROPICAMIDE 1% OPHTH SOLN 15ML OS SCH (10:32)
[2025-02-13] MEDS: CYCLOPENTOLATE 1% OPHTH SOLN 2 ML BTL OS SCH (10:32)
[2025-02-13 10:36] VITALS: BP 121/60; TEMP 98.8; O2SAT 96
== END 2025-02-13 10:45 | disposition home or self-care (01) ==
LOC: M SDC 08:44
PROVIDERS: ATTEND Ophthalmology
DX: H25.12 Age-related nuclear cataract, left eye (principal); H57.03 Miosis; I25.10 Atherosclerotic heart disease of native coronary artery without angina pectoris; I10 Essential (primary) hypertension; J44.9 Chronic obstructive pulmonary disease, unspecified; R56.9 Unspecified convulsions; E78.00 Pure hypercholesterolemia, unspecified; Z79.899 Other long term (current) drug therapy; Z79.82 Long term (current) use of aspirin; Z79.02 Long term (current) use of antithrombotics/antiplatelets; F17.200 Nicotine dependence, unspecified, uncomplicated; Z86.73 Personal history of transient ischemic attack (TIA), and cerebral infarction without residual deficits; Z88.8 Allergy status to other drugs, medicaments and biological substances
CPT/HCPCS: 66982; J0697; J2250; J3010; V2632